=== PATIENT | female | born 1990 | race African-American/Black ===

== ENCOUNTER 2016-11-03 15:07 | Emergency (ER) | payer MEDICAID, OTHER ==
[~2016-11-03] VITALS: Ht 172.7 cm; Wt 128.0 kg
[2016-11-03 18:57] LABS: CLARITY URINE CLOUDY (CLEAR); COLOR URINE YELLOW (YELLOW); GLUCOSE URINE NEGATIVE (NEGATIVE); KETONES URINE NEGATIVE (NEGATIVE); LEUKOCYTE ESTERASE URINE 3+ (NEGATIVE); NITRITE URINE POSITIVE (NEGATIVE); OCCULT BLOOD URINE 3+ (NEGATIVE); PH URINE 7.5 (4.5-8.0); PROTEIN URINE TRACE (NEGATIVE); SPECIFIC GRAVITY URINE 1.018 (1.005-1.030)
[2016-11-03] MEDS ORDERED: KETOROLAC 60MG/2ML VIAL IM ONE (19:00)
[2016-11-03 20:56] VITALS: BP 122/77
== END 2016-11-03 21:01 | disposition home or self-care (01) ==
LOC: ER 18:27
DX: M25.551 Pain in right hip (principal); N39.0 Urinary tract infection, site not specified; Z98.890 Other specified postprocedural states
CPT/HCPCS: 81001; 96372; 99283; J1885

== ENCOUNTER 2017-05-23 08:48 | Emergency (ER) | payer OTHER, MEDICAID ==
[~2017-05-23] VITALS: Ht 175.3 cm; Wt 114.0 kg
[2017-05-23] MEDS ORDERED: KETOROLAC 60MG/2ML VIAL IM ONE (10:30)
[2017-05-23 10:59] VITALS: BP 155/74
== END 2017-05-23 11:01 | disposition home or self-care (01) ==
LOC: ER 08:48
DX: M62.830 Muscle spasm of back (principal)
CPT/HCPCS: 81025; 96372; 99283; J1885

== ENCOUNTER 2017-07-02 12:45 | Emergency (ER) | payer OTHER, MEDICAID ==
[~2017-07-02] VITALS: Ht 172.7 cm; Wt 136.0 kg
[2017-07-02 14:30] LABS: CLARITY URINE CLEAR (CLEAR); COLOR URINE YELLOW (YELLOW); KETONES URINE NEGATIVE (NEGATIVE); LEUKOCYTE ESTERASE URINE TRACE (NEGATIVE); NITRITE URINE NEGATIVE (NEGATIVE); OCCULT BLOOD URINE NEGATIVE (NEGATIVE); PH URINE 5.5 (4.5-8.0); PROTEIN URINE NEGATIVE (NEGATIVE); SPECIFIC GRAVITY URINE 1.019 (1.005-1.030); UROBILINOGEN URINE 0.2 E.U./dL (0.2-1.0)
[2017-07-02] MEDS ORDERED: KETOROLAC 60MG/2ML VIAL IM ONE (15:15)
[2017-07-02 15:28] VITALS: BP 131/80
== END 2017-07-02 15:55 | disposition home or self-care (01) ==
LOC: ER 12:45
DX: S76.012A Strain of muscle, fascia and tendon of left hip, initial encounter (principal); X50.0XXA Overexertion from strenuous movement or load, initial encounter; X50.9XXA Other and unspecified overexertion or strenuous movements or postures, initial encounter; Y93.F2 Activity, caregiving, lifting; Y92.89 Other specified places as the place of occurrence of the external cause; Y99.8 Other external cause status
CPT/HCPCS: 81003; 81025; 87086; 96372; 99284; J1885

== ENCOUNTER 2024-03-07 18:07 | Emergency (ER) | payer MEDICAID ==
[~2024-03-07] VITALS: Ht 167.6 cm; Wt 90.0 kg
[~2024-03-07 18:07] MED LIST: CEPH500C2 MT; NAPR-1176 MT
[2024-03-07 18:09] VITALS: O2SAT 98
[2024-03-07] MEDS: ACETAMINOPHEN 325MG TABLET PO ONE (22:56)
[2024-03-07] MEDS: IBUPROFEN 800MG TABLET PO ONE (22:56)
[2024-03-08] MEDS ORDERED: AZIT250T12 MT (01:19)
[2024-03-08] MEDS ORDERED: TOPUD MT (01:19)
[2024-03-08] MEDS ORDERED: IBUP-1523 MT (01:19)
[2024-03-08 01:47] VITALS: BP 133/71; PULSE 94; RESP 19; O2SAT 97
== END 2024-03-08 01:47 | disposition home or self-care (01) ==
LOC: ER 18:30
DX: R42 Dizziness and giddiness (principal); R07.89 Other chest pain; Z82.49 Family history of ischemic heart disease and other diseases of the circulatory system; Z79.1 Long term (current) use of non-steroidal anti-inflammatories (NSAID); Z20.822 Contact with and (suspected) exposure to COVID-19
CPT/HCPCS: 71045; 87426; 87804; 99284